=== PATIENT | female | born 1970 | race Asian ===

== ENCOUNTER → 2019-03-26 | Outpatient (CLI) | payer OTHER, SELFPAY ==
--- NOTE | 2019-03-26 07:06 | BI_ITS ---
MAMMOGRAPHY - BILATERAL SCREENING REASON FOR EXAM: Female, 48 years old. Routine annual screening examination. PERTINENT HISTORY: Non-contributory. TECHNIQUE: Digital bilateral breast bobby (3D mammographic acquisition) in the CC and MLO projections. 2-D mediolateral oblique (MLO) and craniocaudad (CC) views of both breasts were obtained. CAD: Full Field Digital Mammography with Computer Added Detection was performed. COMPARISON: None. Baseline examination. FINDINGS: Breast Composition: The breasts are extremely dense, which lowers the sensitivity of mammography. There are no dominant masses or suspicious calcifications. No other significant abnormalities are identified. BI/SCREEN MAMM (CAD) W/BOBBY BILAT IMPRESSION: Negative screening mammogram. Yearly followup mammogram recommended. (A) ASSESSMENT CATEGORY: BIRADS Category 1: Negative. A letter regarding these results will be sent to the patient by the facility within 30 days. Approximately 10% of breast cancers are not detected by mammography. A normal mammogram should not delay biopsy of a clinically suspicious abnormality. [id number] Electronically Signed: Jona Martinez, at 9:26 EDT , Service support ,
== END | disposition home or self-care (01) ==
LOC: OPBI 07:05
DX: Z12.31 Encounter for screening mammogram for malignant neoplasm of breast (principal)
CPT/HCPCS: 77063; 77067

== ENCOUNTER → 2021-06-08 07:45 | Outpatient (CLI) | payer OTHER, SELFPAY ==
--- NOTE | 2021-06-08 07:51 | BI_ITS ---
MAMMOGRAPHY - BILATERAL SCREENING 3-D TOMOSYNTHESIS REASON FOR EXAM: Female, 51 years old. Routine screening PERTINENT HISTORY: No significant family history. TECHNIQUE: 2-D mammograms and 3-D Tomosynthesis of the breast (s) were performed. CAD was performed. COMPARISON: 03/26/2019 FINDINGS: The breast composition is heterogeneously dense that can obscure small breast masses. Scattered benign calcifications are seen. No dense spiculated masses or suspicious microcalcifications are identified. No architectural distortion is identified. There is no skin thickening or retraction. There has been no significant change since the prior study. BI/SCRN MAMM (CAD)W/BOBBY BILAT IMPRESSION: No mammographic signs of malignancy. Routine yearly mammograms recommended. ASSESSMENT CATEGORY: BIRADS Category 2: Benign. A letter regarding these results will be sent to the patient by the facility within 30 days. FOLLOW UP RECOMMENDATION: Yearly follow up mammogram recommended. (A) Approximately 10% of breast cancers are not detected by mammography. A normal mammogram should not delay biopsy of a clinically suspicious abnormality. Electronically Signed: Yazan Smith MD at 10:25 EST , Service support ,
== END ==
DX: Z12.31 Encounter for screening mammogram for malignant neoplasm of breast (principal)
CPT/HCPCS: 77063; 77067

== ENCOUNTER → 2022-06-12 | Outpatient (CLI) | payer BC, SELFPAY ==
--- NOTE | 2022-06-12 07:19 | BI_ITS ---
MAMMOGRAPHY - BILATERAL SCREENING REASON FOR EXAM: Female, 52 years old. Routine annual screening examination. PERTINENT HISTORY: Non-contributory. TECHNIQUE: Digital bilateral breast bobby (3D mammographic acquisition) in the CC and MLO projections. 2-D mediolateral oblique (MLO) and craniocaudad (CC) views of both breasts were obtained. CAD: Full Field Digital Mammography with Computer Added Detection was performed. COMPARISON: Comparison is made with prior study dated 06/08/2021 and 03/26/2019. FINDINGS: Breast Composition: The breasts are extremely dense, which lowers the sensitivity of mammography. There are no dominant masses or suspicious calcifications. Stable small benign appearing bilateral axillary lymph nodes. No other significant abnormalities are identified. There has been no significant change since the prior study. BI/SCRN MAMM (CAD)W/BOBBY BILAT IMPRESSION: Stable bilateral screening mammogram. Yearly follow-up mammogram recommended. (A) ASSESSMENT CATEGORY: BIRADS Category 2: Benign. A letter regarding these results will be sent to the patient by the facility within 30 days. Approximately 10% of breast cancers are not detected by mammography. A normal mammogram should not delay biopsy of a clinically suspicious abnormality. [id number] Electronically Signed: Jona Martinez MD at 10:32 EST ,
== END | disposition home or self-care (01) ==
LOC: OPBI 07:17
PROVIDERS: Visit Provider Family Medicine
DX: Z12.31 Encounter for screening mammogram for malignant neoplasm of breast (principal)
CPT/HCPCS: 77063; 77067

== ENCOUNTER 2023-03-26 06:39 | Day surgery (SDC) | payer BC, SELFPAY ==
[2023-03-26] VITALS (7 sets, daily range): BP systolic 78–120; BP diastolic 55–87; PULSE 52–67; RESP 14–20; TEMP 36.2–36.9; O2SAT 100; BMI 18.3
[2023-03-26] MEDS: Lactated Ringers 1,000 ML 15 ML IV (07:04)
--- NOTE | 2023-03-26 07:54 | PCM.HP.STD ---
[facility] - General General Date of Admission: 03/26/23 Date of Service: 03/26/23 Chief Complaint: Screening colonoscopy HPI Narrative SANJIV OCHOA, is a 52 F who presents today for screening colonoscopy. She is never had a colonoscopy in the past. She does not take any medicines on a daily. She has no specific past medical history. She has no family history of colon cancer. She has not had any abdominal pain. She denied any nausea. She not have any chest pain or shortness of breath. Overall she is in very good health. [facility] Medical History (Updated 03/23/23 @ 10:05 by Breonna May) Migraine headache Non-smoker Wears glasses Home Medications ascorbate calcium (vitamin C) 500 mg tablet 500 mg PO DAILY PRN cold symptoms 03/15/23 [History Last Taken Unknown] omega 3-fxe-quj-fish oil 300 mg-1,000 mg capsule (Fish Oil) 1 cap PO DAILY 03/15/23 [History Last Taken Unknown] cyclosporine 0.05 % eye drops in a dropperette (Restasis) 1 drp ophthalmic (eye) Q6H 03/23/23 [History Last Taken Unknown] Allergy/AdvReac Type Severity Reaction Status Date / Time No Known Allergies Allergy Verified 03/26/23 07:02 Social History (Updated 03/15/23 @ 13:35 by Anna Sanders) current occupational status: employed current occupation: [employer] Smoking Status: Never smoker ROS Review of Systems ROS Unobtainable: other Constitutional Constitutional: Denies fatigue, fever(s), poor appetite, weight gain or weight loss ENT HEENT: Denies mouth lesions Cardiovascular Cardiovascular: Denies abdominal bloating, abdominal edema or abdominal pain Respiratory/Chest Respiratory/Chest: Denies change in mental status, change in phlegm color, chest congestion or chest tightness Gastrointestinal Gastrointestinal: Denies belching, bloating, change in bowel habits, change in stool character, chewing difficulty, coffee ground emesis, constipation, cramping, diarrhea, dyspepsia, dysphagia, early satiety, excessive flatus, fecal incontinence, heartburn, hematemesis, hematochezia, hemorrhoids, loose stools, melena, nausea, odynophagia, rectal bleeding, tenesmus, vomiting or weight changes Genitourinary Genitourinary: Denies abdominal discomfort, burning urination or itching Musculoskeletal Musculoskeletal: Reports as per HPI; Denies muscle weakness or myalgias Integumentary Integumentary: Denies jaundice Neurologic Neurologic: Denies lack of coordination or weakness Psychiatric Psychiatric: Denies confusion, depression, memory loss, mood swings, paranoia or suicidal ideation Endocrine Endocrinology: Denies systems reviewed and no addt'l complaints, except as documented Hematologic/Lymphatic Hematologic/Lymphatic: Denies anemia, easy bleeding, easy bruising or lymphadenopathy Allergic/Immunologic Allergic/Immunologic: Denies systems reviewed and no addt'l complaints, except as documented Vital Signs Vital Signs Vital Signs: 03/26/23 07:07 03/26/23 07:07 Temperature 98.4 F Temperature Source Temporal Pulse Rate 67 Respiratory Rate 20 H Respiratory Pattern Normal Blood Pressure 120/87 H Blood Pressure Mean 98 Blood Pressure Source Monitor Blood Pressure Position Semi-Fowlers Blood Pressure Location Right Arm Pulse Ox 100 Oxygen Delivery Method Room Air Weight Weight: 100 lb 9.6 oz Body Mass Index (BMI) 18.3 Physical Exam Const alert General Appearance: cooperative Orientation / Consciousness: oriented to person HEENT hearing grossly normal bilaterally Head and Scalp: normal to inspection Face and Sinus: face symmetric Nose: external nose normal Mouth: oral and palatal mucosa normal Eyes conjunctivae normal General Eye: normal appearance of both eyes Neck full ROM General: normal visual inspection Lymph Lymphatic: no lymphadenopathy noted Chest inspection of chest normal and palpation of chest normal Chest: symmetrical chest wall rise Resp normal respiratory effort Effort and Inspection: able to speak in complete sentences Cardio regular rate GI non-distended Percussion: normal to percussion Rectal Exam: deferred Neuro Speech: speech normal Gait (Neuro): normal gait Assessment & Plan Assessment/Plan (1) Encounter for screening for malignant neoplasm of colon: PLAN: She will undergo screening colonoscopy. She was explained alternatives, risk, benefits including not withstanding bleeding, infection, sepsis, perforation, need for emergent surgery . She will have an ASA of 2.
--- NOTE | 2023-03-26 08:24 | OP.COLON_ITS ---
Patient Name: Dominique Unger Procedure Date: 03/26/2023 7:56 AM Date of : 1970 Age: 52 Procedure: Colonoscopy Indications: Screening for colorectal malignant neoplasm Providers: Mychal Juárez DO Referring MD: Nenita Montanez [facility] Medicines: Monitored Anesthesia Care Patient Profile: This is a 52 year old female. Refer to note in patient chart for documentation of history and physical. Last Colonoscopy: none. The patient's first colonoscopy is today. Complications: No immediate complications. Procedure: Pre-Anesthesia Assessment: - Prior to the procedure, a History and Physical was performed, and patient medications and allergies were reviewed. The risks and benefits of the procedure and the sedation options and risks were discussed with the patient. All questions were answered and informed consent was obtained. Patient identification and proposed procedure were verified by the physician. Mental Status Examination: normal. Prophylactic Antibiotics: The patient does not require prophylactic antibiotics. Prior Anticoagulants: The patient has taken no anticoagulant or antiplatelet agents. ASA Grade Assessment: II - A patient with mild systemic disease. After reviewing the risks and benefits, the patient was deemed in satisfactory condition to undergo the procedure. The anesthesia plan was to use monitored anesthesia care (MAC). Immediately prior to administration of medications, the patient was re-assessed for adequacy to receive sedatives. The heart rate, respiratory rate, oxygen saturations, blood pressure, adequacy of pulmonary ventilation, and response to care were monitored throughout the procedure. The physical status of the patient was re-assessed after the procedure. After I obtained informed consent, the scope was passed under direct vision. Throughout the procedure, the patient's blood pressure, pulse, and oxygen saturations were monitored continuously. The colonoscope was introduced through the anus and advanced to the cecum, identified by appendiceal orifice and ileocecal valve. The colonoscopy was performed without difficulty. The patient tolerated the procedure well. The quality of the bowel preparation was adequate. The ileocecal valve, appendiceal orifice, and rectum were photographed. Scope In: 8:05:42 AM Scope Withdrawal Time 0 hours 9 minutes 6 seconds Scope Out: 8:19:05 AM Total Procedure Duration Time 0 hours 13 minutes 23 seconds Findings: The perianal and digital rectal examinations were normal. Retroflexion in the rectum was not performed due to unusual anatomy. The exam was otherwise without abnormality. Impression: - The examination was otherwise normal. - No specimens collected. Recommendation: - Discharge patient to home. - Resume previous diet. - Continue present medications. - Repeat colonoscopy in 10 years for screening purposes. Procedure Code(s): --- Professional --- G0121, Colorectal cancer screening; colonoscopy on individual not meeting criteria for high risk CPT copyright 2021 [employer]. All rights reserved. The codes documented in this report are preliminary and upon tableau developer review may be revised to meet current compliance requirements. Mychal Juárez DO 03/26/2023 8:24:37 AM This report has been signed electronically. Number of Addenda: 0 Note Initiated On: 03/26/2023 7:56 AM
--- NOTE | 2023-03-26 08:24 | OP.CCLET_ITS ---
03/26/[address] [facility] Re : Colonoscopy procedure for Dominique Unger [facility] This procedure was performed on Sunday, March 26, 2023. My impressions and recommendations are as follows: Impressions : - The examination was otherwise normal. - No specimens collected. Recommendations : - Discharge patient to home. - Resume previous diet. - Continue present medications. - Repeat colonoscopy in 10 years for screening purposes. My findings are described in the full procedure note, which is enclosed. If I can be of further assistance, please feel free to contact me at . Sincerely, Mychal Juárez, 03/26/2023 8:24:37 AM This report has been signed electronically.
== END 2023-03-26 10:10 | disposition home or self-care (01) ==
LOC: EN 06:41 → AC 06:42
PROVIDERS: Visit Provider Internal Medicine Gastroenterology
PROC: 0DJD8ZZ Inspection of Lower Intestinal Tract, Via Natural or Artificial Opening Endoscopic (ICD-10-PCS; CPT 45378; principal; 2023-03-26 07:25)
DX: Z12.11 Encounter for screening for malignant neoplasm of colon (principal)
CPT/HCPCS: 45378; J7120; J2405

== ENCOUNTER → 2023-06-15 | Outpatient (CLI) | payer BC, SELFPAY ==
--- NOTE | 2023-06-15 07:25 | BI_ITS ---
MAMMOGRAPHY - BILATERAL SCREENING REASON FOR EXAM: Female, 53 years old. Routine annual screening examination. PERTINENT HISTORY: Non-contributory. TECHNIQUE: Digital bilateral breast bobby (3D mammographic acquisition) in the CC and MLO projections. 2-D mediolateral oblique (MLO) and craniocaudad (CC) views of both breasts were obtained. CAD: Full Field Digital Mammography with Computer Added Detection was performed. COMPARISON: Comparison is made with prior study June 12, 2022 and June 08, 2021. FINDINGS: Breast Composition: The breasts are extremely dense, which lowers the sensitivity of mammography. There are no dominant masses or suspicious calcifications. No other significant abnormalities are identified. There has been no significant change since the prior study. BI/SCRN MAMM (CAD)W/BOBBY BILAT IMPRESSION: Stable bilateral screening mammogram. Yearly follow-up mammogram recommended. (A) ASSESSMENT CATEGORY: BIRADS Category 1: Negative. A letter regarding these results will be sent to the patient by the facility within 30 days. Approximately 10% of breast cancers are not detected by mammography. A normal mammogram should not delay biopsy of a clinically suspicious abnormality. [id number] Electronically Signed: Jona Martinez MD at 9:35 EST ,
== END | disposition home or self-care (01) ==
LOC: OPBI 07:23
PROVIDERS: Referring Provider Nurse Practitioner Family; Visit Provider Nurse Practitioner Family
DX: Z12.31 Encounter for screening mammogram for malignant neoplasm of breast (principal)
CPT/HCPCS: 77063; 77067

== ENCOUNTER → 2024-05-15 | Outpatient (CLI) | payer BC, SELFPAY ==
[2024-05-23 10:09] LABS: HPV APTIMA, High Risk Negative (Negative)
[2024-05-23 16:51] LABS: HPV Reflexed? YES, CHARGE PATIENT
== END | disposition home or self-care (01) ==
LOC: LABSPEC 12:02
PROVIDERS: PCP Family Medicine; Visit Provider Family Medicine
DX: Z01.419 Encounter for gynecological examination (general) (routine) without abnormal findings (principal)
CPT/HCPCS: 87624; 88175; G0145

== ENCOUNTER → 2024-05-23 | Outpatient (CLI) | payer BC, SELFPAY | END | disposition home or self-care (01) | LOC: LABSPEC 14:21 | PROVIDERS: PCP Family Medicine; Referring Provider Obstetrics & Gynecology; Visit Provider Obstetrics & Gynecology | DX: N84.1 Polyp of cervix uteri (principal) | CPT/HCPCS: 88305 ==

== ENCOUNTER → 2024-06-16 | Outpatient (CLI) | payer BC, SELFPAY ==
--- NOTE | 2024-06-16 07:38 | BI_ITS ---
MAMMOGRAPHY - BILATERAL SCREENING REASON FOR EXAM: Female, 54 years old. Routine annual screening examination. PERTINENT HISTORY: Non-contributory. TECHNIQUE: Digital bilateral breast bobby (3D mammographic acquisition) in the CC and MLO projections. 2-D mediolateral oblique (MLO) and craniocaudad (CC) views of both breasts were obtained. CAD: Full Field Digital Mammography with Computer Added Detection was performed. COMPARISON: Comparison is made with prior study dated June 15, 2023 and June 12, 2022. FINDINGS: Breast Composition: The breasts are extremely dense, which lowers the sensitivity of mammography. There are no dominant masses or suspicious calcifications. No other significant abnormalities are identified. There has been no significant change since the prior study. BI/SCRN MAMM (CAD)W/BOBBY BILAT IMPRESSION: Stable bilateral screening mammogram. Yearly follow-up mammogram recommended. (A) ASSESSMENT CATEGORY: BIRADS Category 1: Negative. A letter regarding these results will be sent to the patient by the facility within 30 days. Approximately 10% of breast cancers are not detected by mammography. A normal mammogram should not delay biopsy of a clinically suspicious abnormality. [id number] Electronically Signed: Jona Martinez MD at 10:04 EST ,
== END | disposition home or self-care (01) ==
LOC: OPBI 07:37
PROVIDERS: PCP Family Medicine; Referring Provider Family Medicine; Visit Provider Family Medicine
DX: Z12.31 Encounter for screening mammogram for malignant neoplasm of breast (principal)
CPT/HCPCS: 77063; 77067

== ENCOUNTER → 2025-04-13 | Outpatient (CLI) | payer BC, SELFPAY ==
--- OUTSIDE RECORDS SUMMARY | 2024-05-20 10:22 | XMS RPT_ITS ---
Author Name Auto Generated Organization [facility] Care Team Providers Care Warp Yarn Sorter Name Role Phone TABATHA HOFFMANN Attending Unavailable TABATHA HOFFMANN Primary Care Unavailable TABATHA HOFFMANN Referring Unavailable TALITA ALANIZ Attending Unavailable TABATHA HOFFMANN Primary Care Unavailable PROBLEMS DATE TYPE CONDITION / CODE ATTENDING STATUS [facility] 05/20/2024 Admitting diagnosis Other effects of high altitude, initial encounter / T70.29XA(ICD-10) TABATHA HOFFMANN Active [facility] 05/20/2024 Admitting diagnosis Unspecified eustachian tube disorder, bilateral / H69.93(ICD-10) TABATHA HOFFMANN Active [facility] PROCEDURES No Procedure Records Found RESULTS PROGRESS Observed: 05/20/2024 9:08 AM Status: COMPLETED Source: [facility] [address] [facility] [address] [facility] [address] Dept: [phone] MD Sanjiv Guevara 54 y.o. female Patient presents with a chief complaint of FLUID ON RIGHT EAR Temp 97 degrees F (36.1 degrees C) (Temporal) Ht 5' 2" Wt 47.9 kg (105 lb 11.2 oz) BMI 19.33 kg/m History of Presenting Illness: The patient/caregiver reports a history of complaint with the following features: Onset: started while SCUBA diving last few weeks Timing: abrupt onset Duration: Quality: reduced hearing left ear Location: right ear Severity: pain mild, wet sensation in ear canal Risk factors: trouble equalizing pressure in left ear Alleviating factors: nothing makes it better Aggravating factors: diving Associated factors: no vertigo Review of systems covering 10 systems is reviewed and pertinent positives and negatives are noted as above. History reviewed. No pertinent past medical history. Current Outpatient Medications: cycloSPORINE (RESTASIS) 0.05 % ophthalmic emulsion, Administer 1 (one) drop to both eyes 4 (four) times a day ., Disp: , Rfl: No Known Allergies History reviewed. No pertinent surgical history. Social History Socioeconomic History Marital status: Tobacco Use Smoking status: Never Smokeless tobacco: Never Substance and Sexual Activity Alcohol use: Never Drug use: Never History reviewed. No pertinent family history. PHYSICAL EXAM: The patient was examined today 05/20/2024 with findings as follows: CONSTITUTIONAL: General Appearance: well-appearing, nontoxic, alert, no acute distress Communication: normal voicing, hearing intact to spoken voice HEAD/FACE: Head: atraumatic, normocephalic, no lesions Facial Inspection: no lesions, healthy skin Facial Strength: motor strength normal, symmetric strength, symmetric movement EYES: Pupils: PERRLA, extra-ocular movements intact, no nystagmus, sclera white, no redness of eyes, no watering of eyes EARS: Bilateral External Ears: no pits, no tags Right External Ear: normally formed, no lesions, no mastoid tenderness Left External Ear: normally formed, no lesions, no mastoid tenderness Right External Auditory Canal: normal, healthy skin, no obstructing cerumen, no discharge Left External Auditory Canal: normal, healthy skin, no obstructing cerumen, no discharge Right Tympanic Membrane: normal landmarks, mild inflammation, mucous stranding, no perforation Left Tympanic Membrane: normal landmarks, no perforation Hearing: intact to spoken voice NECK: Neck: no masses, trachea midline, normal range of motion, no cysts or pits, no tenderness to palpation LYMPH NODES: Cervical: no palpable lymph node enlargement SKIN: General Appearance: no lesions, warm and dry, normal turgor, no bruising PSYCHIATRIC: Mood and affect: normal mood, normal affect Assessment and Plan: She has some mild hyperemia and mucoid effusion in the right ear. Audiometric testing is performed today and independently reviewed and interpreted. This shows normal hearing levels bilaterally. Tympanometry shows normal compliance consistent with normally ventilated middle ear spaces. She has some mild barotrauma and I do not expect this to prohibit further diving. The use of a nasal decongestant such as Afrin 30 minutes before a dive may help to improve middle ear pressure equalization. She will notify me for any severe pain, ear bleeding, vertigo, discharge, or hearing loss with future dives for repeat evaluation. 1. Barotrauma due to diving Ambulatory referral to Audiology 2. Disorder of both eustachian tubes No follow-ups on file. The patient and/or caregiver is to notify the office if no improvement or worsening of symptoms is noted prior to the scheduled follow-up for sooner evaluation. The patient and/or caregiver is able to state an understanding of these recommendations and is agreeable to the treatment plan. --Tabatha Hoffmann MD on 05/20/2024 at 10:30 AM An electronic signature was used to authenticate this note. AUTHENTICATED BY TABATHA HOFFMANN, ON 05/20/2024 10:30:45 ALLERGIES DATE TYPE / CODE NAME / CODE REACTION SEVERITY SOURCE Miscellaneous Allergy/[id number](SNOME D CT) NO KNOWN ALLERGIES [facility] ENCOUNTERS ADMIT/DISCHARGE ACCOUNT NUMBER ADMITTING ENCOUNTER CLASS LOCATION SOURCE 05/20/2024/ 4 [id number] Ambulatory Building:[facility] AUDIOLOGYMHO [facility] 05/20/2024/ 4 [id number] Ambulatory Building:[facility] ENTOHIOHLW [facility] Ambulatory PAYERS ENCOUNTER GUARANTOR PAYER SUBSCRIBER SOURCE 05/20/2024 SANJIV HOGANOB: [place], [place] [address]Lwl: (HP) Primary Insurance:YUSEF chowdary Number: [id number] tive Date:[id number] [address], [place] [address]II: UPIKIUziar MERRYLINAOB: [id number] [place], [place] [address]Iyn: () [facility] 05/20/2024 SANJIV HOGANOB: [place], [place] [address]Yqk: () Primary Insurance:YUSEF rebeccatena Number: [id number] tive Date:[id number] [address], [place] [address]MO: SANJIV SOUSASVETLANAFITOOB: [id number] [place], [place] [address]Ndi: () [facility]
--- NOTE | 2025-04-13 16:38 | RAD_ITS ---
PROCEDURE: HAND MIN 3 VIEWS 04/13/2025 REASON FOR EXAM: PAIN IN JOINTS TECHNIQUE: Procedure Code: LIZ Modality: DX Procedure: HAND MIN 3 VIEWS Left hand three views COMPARISON: None FINDINGS: There is no fracture or dislocation identified. There is no significant erosive disease. 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 Osteopenia is noted. There is no visible atherosclerosis. RAD/Hand Min 3 Views IMPRESSION: No fracture or dislocation is identified. Reading Location: [facility]
--- NOTE | 2025-04-13 16:38 | RAD_ITS ---
PROCEDURE: HAND MIN 3 VIEWS 04/13/2025 REASON FOR EXAM: PAIN IN JOINTS TECHNIQUE: Procedure Code: LIZ Modality: DX Procedure: HAND MIN 3 VIEWS Three views of the right hand COMPARISON: None FINDINGS: There is no fracture or dislocation identified. There is no significant erosive disease. Osteopenia is noted. There is no visible soft tissue abnormality or radiopaque foreign body. RAD/Hand Min 3 Views IMPRESSION: No fracture or dislocation is identified. Reading Location: [facility]
[2025-04-13 18:24] LABS: CRP < 3.00 mg/L (0.0-3.0); Uric Acid 4.8 mg/dL (2.6-6.0)
[2025-04-15 14:09] LABS: Anti-Chromatin <0.2 AI (0.0-0.9); Anti-Jo <0.2 AI (0.0-0.9); Anti-dsDNA Ab 1 IU/mL (0-9); SJOGREN'S Anti-SS-A test < 0.2 AI (0.0-0.9); SJOGREN'S Anti-SS-B test < 0.2 AI (0.0-0.9)
== END | disposition home or self-care (01) ==
LOC: RAD 16:07
PROVIDERS: PCP Family Medicine
DX: M25.542 Pain in joints of left hand (principal); M25.541 Pain in joints of right hand; M79.672 Pain in left foot
CPT/HCPCS: 36415; 73130; 84550; 85652; 86140; 86200; 86225; 86235; 86431

== ENCOUNTER → 2025-05-12 | Outpatient (CLI) | payer BC, SELFPAY ==
[2025-05-15 13:08] LABS: HPV APTIMA, High Risk Negative (Negative)
== END | disposition home or self-care (01) ==
LOC: LABSPEC 09:20
PROVIDERS: PCP Family Medicine; Visit Provider Nurse Practitioner Family
DX: Z01.419 Encounter for gynecological examination (general) (routine) without abnormal findings (principal)
CPT/HCPCS: 87624; 88175; G0145

== ENCOUNTER → 2025-06-18 | Outpatient (CLI) | payer BC, SELFPAY ==
--- NOTE | 2025-06-18 07:37 | BI_ITS ---
EXAM: SCRN MAMM (CAD)W/BOBBY BILAT DATE: 06/18/2025 CLINICAL HISTORY: F, Age 55 y/o , SCREENING TECHNIQUE: Procedure Code: [id number] Modality: MG Procedure: SCRN MAMM (CAD)W/BOBBY BILAT COMPARISON: Prior exam(s) were compared FINDINGS: TISSUE DENSITY: The breasts are heterogeneously dense, which may obscure small masses. Bilateral Breast Mammographic Findings: No significant masses, calcifications or other abnormalities are identified. BI/SCRN MAMM (CAD)W/BOBBY BILAT IMPRESSION: No mammographic evidence of malignancy. OVERALL FINAL ASSESSMENT BI-RADS 1: NEGATIVE. RECOMMENDATION: Routine annual follow-up in 1 Year Additional Recommendation none A letter with findings and recommendations will be mailed to the patient. Reading Location: [id number]
--- OUTSIDE RECORDS SUMMARY | 2025-06-18 07:50 | XMS RPT_ITS | CCD ---
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 04-15-2025 Radiology Diagnostic study note [facility] Imaging Services [address] [place] [address] Hand Min 3 Views MR#: [id number] Acct: [id number] Name: DOMINIQUE UNEGR Rep #: [id number] : 1970 F 54 From: Axel Greenwood MD PCP: Raquel Casey DO Status: REG CLI Study:Hand Min 3 Views Date of Exam: Exam# [id number] Ordering Dr: Adolfo Youngblood [facility] [employer] PROCEDURE: HAND MIN 3 VIEWS 04/13/2025 REASON FOR EXAM: PAIN IN JOINTS TECHNIQUE: Procedure Code: LIZ Modality: DX Procedure: HAND MIN 3 VIEWS Left hand three views COMPARISON: None FINDINGS: There is no fracture or dislocation identified. There is no significant erosivedisease. 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 Osteopenia is noted. There is no visible atherosclerosis. RAD/Hand Min 3 Views IMPRESSION: No fracture or dislocation is identified. Reading Location: [facility] CC: Raquel Casey DO; Claribel [facility] [employer] Beam ~ Coconut Jelly Roller: Signed [facility] 05-20-2024 History of Present illness Narrative Images from the original note were not included. [facility] [address] [address] Name: Dominique Unger : 1970 Date: 05/20/24 History & Purpose of Evaluation: Dominique Unger was seen today for audiologic assessment at the request of Tabatha Hoffmann MD. Ms. Unger's chief auditory complaint was difficulty equalizing pressure in her right ear, particularly when SCUBA diving. She also noted that when she leans her head/body forward/down she hears a sound similar to running water in her right ear. Please see below for other pertinent case history information as reported by Ms. Unger. Otologic Symptoms R L Noise Exposure Y N Medical Y N Hearing Loss [] [] Occupational [] [x] Hypertension [] [x] Tinnitus [x] [] Recreational [] [x] Diabetes [] [x] Otalgia [] [] [] [x] Hypercholesterolemia [] [x] Otorrhea [] [] Heart Disease [] [x] Aural Fullness [] [] Family History [] [x] Stroke [] [x] Meniere s Disease [] [] Cancer [] [x] Y N Sp./Lang. Skills Ear Surgery R L Vertigo [] [x] Appropriate [x] [] PE Tubes [] [] Dizziness [] [x] In Therapy [] [x] Mastoidectomy [] [] Imbalance [] [x] Social Acoustic Neuroma [] [] Vestibular Rehab [] [x] Depression-past [x] [] Tympanoplasty [] [] Hearing aids: none Other: Results: Otoscopy: Performed by Dr. Hoffmann prior to testing. Puretone Air & Bone Conduction Audiometry: Pure tone audiometry suggested hearing essentially within normal limits, bilaterally. Speech Audiometry: Speech recognition thresholds were in good agreement with three-frequency puretone averages. Word recognition was excellent (98% in the right ear and 90% in the left ear) when assessed at a quiet conversational loudness level using 50-word lists of recorded male voice. Immittance Audiometry: Tympanometry revealed normal ear canal volume, normal static compliance, and normal resting pressure (Jerger type A), bilaterally. Ipsilateral acoustic reflexes were present in the right ear and absent in the left ear. Contralateral acoustic reflexes were absent in both ears. Impression: Middle ear testing was consistent with a well-ventilated middle ear system, bilaterally. Puretone audiometry was consistent with essentially normal peripheral hearing in both ears on day of test. This hearing is expected to be adequate for communication in most listening situations. Recommendations: Medical follow up with Dr. Hoffmann. Further testing and/or re-evaluation at Dr. Hoffmann' discretion. The above was explained to Ms. nUger and she expressed understanding. Electronically Signed by: Margie Aldridge, [facility] 05/20/24 9:29 AM Audiogram: documented in this encounter [facility] 05-20-2024 Note [facility] [address] [facility] [address] [facility] [address] Dept: [phone] Tabatha Hoffmann MD Uppatricia Unger 54 y.o. female Patient presents with a chief complaint of FLUID ON RIGHT EAR Temp 97 degrees F (36.1 degrees C) (Temporal) Ht 5' 2 Wt 47.9 kg (105 lb 11.2 oz) [...] AUTHENTICATED BY TABATHA HOFFMANN, ON 05/20/2024 10:30:45 [facility] 05-20-2024 History of Present illness Narrative [facility] [address] [facility] [place] [address] [facility] [address] Dept: [phone] Tabatha Hoffmann MD [facility] 54 y.[facility]. [facility] Patient presents with a chief complaint of FLUID ON RIGHT EAR Temp 97 F (36.1 C) (Temporal) Ht 5' 2 Wt 47.9 kg (105 lb 11.2 oz) [...] signature was used to authenticate this note. Review of Systems Constitutional: Negative. HENT: Positive for hearing loss. Eyes: Negative. Respiratory: Negative. Cardiovascular: Negative. Gastrointestinal: Negative. Endocrine: Negative. Genitourinary: Negative. Musculoskeletal: Negative. Skin: Negative. Allergic/Immunologic: Negative. Neurological: Negative. Hematological: Negative. Psychiatric/Behavioral: Negative. documented in this encounter [facility] 03-26-2023 History and physical note Note Date/Time March 26, 2023 7:56am [facility] Medical Records Department [address] [place] [address] History & Physical Exam 03/26/23 0754 MR#: [id number] Acct: [id number] Name: DOMINIQUE UNGER Rep #:[id number] : 1970 52 From: Mychal Friend PCP: [facility] St joyus[facility] Location: [place] [address] HPI - General General Date of Admission: 03/26/23 Date of Service: 03/26/23 Chief Complaint: Screening colonoscopy HPI Narrative DOMINIQUE UNGER, is a 52 F who presents today for screening colonoscopy. She is never had a colonoscopy in the past. She does not take any medicines on a daily. She has no specific past medical history. She has no family history of colon cancer. She has not had any abdominal pain. She denied any nausea. She not have any chest pain or shortness of breath. Overall she is in very good health. [facility] Medical History (Updated 03/23/23 @ 10:05 by Breonna May) Migraine headache Non-smoker Wears glasses Home Medications ascorbate calcium (vitamin C) 500 mg tablet 500 mg PO DAILY PRN cold symptoms 03/15/23 [History Last Taken Unknown] omega 2-ziy-ghv-fish oil 300 mg-1,000 mg capsule (Fish Oil) 1 cap PO DAILY 03/15/23 [History Last Taken Unknown] cyclosporine 0.05 % eye drops in a dropperette (Restasis) 1 drp ophthalmic (eye)Q6H 03/23/23 [History Last Taken Unknown] Allergy/AdvReac Type Severity Reaction Status Date / Time No Known Allergies Allergy Verified 03/26/23 07:02 Social History (Updated 03/15/23 @ 13:35 by Anna Sanders) current occupational status: employed current occupation: [employer] Smoking Status: Never smoker ROS Review of Systems ROS Unobtainable: other Constitutional Constitutional: Denies fatigue, fever(s), poor appetite, weight gain or weight loss ENT HEENT: Denies mouth lesions Cardiovascular Cardiovascular: Denies abdominal bloating, abdominal edema or abdominal pain Respiratory/Chest Respiratory/Chest: Denies change in mental status, change in phlegm color, chestcongestion or chest tightness Gastrointestinal Gastrointestinal: Denies belching, bloating, change in bowel habits, change in stool character, chewing difficulty, coffee ground emesis, constipation, cramping, diarrhea, dyspepsia, dysphagia, early satiety, excessive flatus, fecalincontinence, heartburn, hematemesis, hematochezia, hemorrhoids, loose stools, melena, nausea, odynophagia, rectal bleeding, tenesmus, vomiting or weight changes Genitourinary Genitourinary: Denies abdominal discomfort, burning urination or itching Musculoskeletal Musculoskeletal: Reports as per HPI; Denies muscle weakness or myalgias Integumentary Integumentary: Denies jaundice Neurologic Neurologic: Denies lack of coordination or weakness Psychiatric Psychiatric: Denies confusion, depression, memory loss, mood swings, paranoia orsuicidal ideation Endocrine Endocrinology: Denies systems reviewed and no addt'l complaints, except as documented Hematologic/Lymphatic Hematologic/Lymphatic: Denies anemia, easy bleeding, easy bruising or lymphadenopathy Allergic/Immunologic Allergic/Immunologic: Denies systems reviewed and no addt'l complaints, except as documented Vital Signs Vital Signs Vital Signs: 03/26/23 07:07 03/26/23 07:07 Temperature 98.4 F Temperature Source Temporal Pulse Rate 67 Respiratory Rate 20 H Respiratory Pattern Normal Blood Pressure 120/87 H Blood Pressure Mean 98 Blood Pressure Source Monitor Blood Pressure Position Semi-Fowlers Blood Pressure Location Right Arm Pulse Ox 100 Oxygen Delivery Method Room Air Weight Weight: 100 lb 9.6 oz Body Mass Index (BMI) 18.3 Physical Exam Const alert General Appearance: cooperative Orientation / Consciousness: oriented to person HEENT hearing grossly normal bilaterally Head and Scalp: normal to inspection Face and Sinus: face symmetric Nose: external nose normal Mouth: oral and palatal mucosa normal Eyes conjunctivae normal General Eye: normal appearance of both eyes Neck full ROM General: normal visual inspection Lymph Lymphatic: no lymphadenopathy noted Chest inspection of chest normal and palpation of chest normal Chest: symmetrical chest wall rise Resp normal respiratory effort Effort and Inspection: able to speak in complete sentences Cardio regular rate GI non-distended Percussion: normal to percussion Rectal Exam: deferred Neuro Speech: speech normal Gait (Neuro): normal gait Assessment & Plan Assessment/Plan (1) Encounter for screening for malignant neoplasm of colon: PLAN: She will undergo screening colonoscopy. She was explained alternatives, risk, benefits including not withstanding bleeding, infection, sepsis, perforation, need for emergent surgery . She will have an ASA of 2. 03/26/23 0756 <Electronically signed by Mychal Juárez DO> Cosigner Signature (if applicable): CC: Mychal Juárez DO; [facility]~ Signed [facility] Work Phone: [phone]) 774-535709-11-2023 [facility] HospitalEvaluation noteNo assessment information availableWWood [facility] Work Phone: Evaluation note* Diagnosis Onset Date Resolution Status Encounter for screening for malignant neoplasm of colo n acute [facility] Work Phone: Evaluation note* Diagnosis Barotrauma due to diving- Primary Disorder of both eustachian tubes [facility] Dysfunction of both eustachian tubes- Primary Barotrauma due to diving [facility]ative)No reason for referral information availableWWood County Hospital Work Phone: Reason for visit Narrative* Evaluate and Treat (Routine) - Closed Specialty Diagnoses / Procedures Referred By Ann landry Referred To Contact Audiology Diagnoses Barotrauma due to diving Tabatha Hoffmann MD [address] [facility] [address] [place] [address] Phone: tel: fax: [facility] [address] [place] [address] Phone: tel: fax: Referral ID Status Reason Start Date Expiration Date Visits Re quested Visits Authorized [id number] Closed 05/20/2024 05/20/2025 1 1 [facility] Chief Complaint and Reason for Visit Chief Complaint SCREENING Chief Complaint Amb Documentation Reason for Visit Encounter for screen ing for malignant neoplasm of colon Chief Complaint Amb Documentation SCREENING Reason for Visit Encounter for screen ing for malignant neoplasm of colon Chief Complaint Admit Date XRAY AND LABS April 13, 2025 4:06pm Advance Directives No Advanced Directives Records Found Advance Directive Response Recorded Date/ Time Name of Medical Power of Home Health Nurse daughter March 23, 2023 9:48am Living Will Yes March 23, 023 9:48am Power of Home Health Nurse Yes March 23, 2023 9:48am Advance Directive Response Recorded Date/ Time Name of Medical Power of Home Health Nurse daughter March 23, 2023 8:48am Living Will Yes March 23 023 8:48am Power of Home Health Nurse Yes March 23, 2023 8:48am Summary Purpose Family History No Family History Records FoundNo Family History Records Found Additional Source Comments Goals (unrecognized section and content) Goals may be documented in a n alternate sectionGoals may be documented in an alternate section Care Teams (unrecognized sec tion and content) Team Status: Active Member Role Status Dates [facility] Family Provider Active [facility] Primary Care Provider A ctive Team Status: Active Member Role Status Dates [facility] Primary Care Provider A ctive Anna Sanders Attending Provider Active Team Status: Active Member Role Status Dates [facility] Primary Care Provider, Referring Provider Active Dr. Mychal Juárez , Attending Provider, Other Prov ider Active Team Status: Inactive Member Role Status Dates [facility] Primary Care Provider, Referring Provider Active Dr. Mychal Juárez , Attending Provider Active Team Status: Inactive Member Role Status Dates [facility] Primary Care Provider A ctive Ekaterina Maldonado DIRECTOR [employer]IN[employer], DIRECTOR BIOINFORMATICS-C Attending Provider, Referneena retana Provider Active [employer] Relationship Specialty Start Date End Date Tabatha Hoffmann MD [facility] [address] [place] [address] PCP - General Otolaryngology (ENT) 05/20/24 [employer] Relationship Specialty Start Date End Date Tabatha Hoffmann MD [address] [place] [address] PCP - General Otolaryngology (ENT) 05/20/24 Team Status: Active Member Role/Relationship Status Dates [facility] Primary care physician Active Raquel Casey VSC, DO Primary care physician Active Team Status: Inactive Member Role/Relationship Status Dates Raquel Casey VSC, DO Primary care physician Active Start: April 13, 2025 End: April 13, 2025 Zebulutressa Beam VSC, DIRECTOR [employer]INFORMAT[employer]-C Attending physician Active Start: April 13, 2025 End: April 13, 2025 Zebulutressa Beam VSC, DIRECTOR [employer]IOINFORMAT[employer]-C Referring Provider Active Start: April 13, 2025 End: April 13, 2025 Reason for Visit (unrecogniz ed section and content) Reason Comments FLUID ON RIGHT EAR INFORMATION SOURCE (unrecogn ized section and content) DATE CREATED AUTHOR 05/26/2024 [facility] DATE CREATED AUTHOR AUTHOR'S ORGANIZ ATION 05/27/2025 [facility] FOR RECORDS PERTAINING TO PATIENTS WHO ARE OR HAVE BEEN ENROLLED IN A CHEMICAL DEPENDENCY/SUBSTANCEABUSE PROGRAM, SOME INFORMATION MAY BE OMITTED. This clinical summary was aggregated from multiple sources. Caution should be exercised in using it in the provision of clinical care. This summary normalizes information from multiple sources, and as a consequence, information in this document may materially change the coding, format and clinical context of patient data. In addition, data may be omitted in some cases. CLINICAL DECISIONS SHOULD BE BASED ON THE PRIMARY CLINICAL RECORDS. [employer] [facility]. provides no warranty or guarantee of the accuracy or completeness of information in this document.
== END | disposition home or self-care (01) ==
PROVIDERS: PCP Family Medicine; Referring Provider Nurse Practitioner Family; Visit Provider Nurse Practitioner Family
DX: Z12.31 Encounter for screening mammogram for malignant neoplasm of breast (principal)
CPT/HCPCS: 77063; 77067